=== PATIENT | male | born 1965 | race Asian ===

== ENCOUNTER 2016-07-15 15:12 | Emergency (ER) | payer MEDICAID ==
[~2016-07-15] VITALS: Ht 177.8 cm; Wt 77.1 kg
[2016-07-15 15:23] VITALS: BP 109/74; PULSE 73; RESP 18; TEMP 96.5; O2SAT 97
[2016-07-15] MEDS ORDERED: KETOROLAC TROMETHAMINE 60 MG/2 ML VIAL IM ONE (16:45)
[2016-07-15] MEDS ORDERED: DEXAMETHASONE SOD PHOSPHATE 10 MG/ML VIAL IM ONE (16:45)
[2016-07-15 17:35] VITALS: BP 119/65; PULSE 78; RESP 18; TEMP 98.3; O2SAT 97
== END 2016-07-15 17:35 | disposition home or self-care (01) ==
LOC: SED 15:12
DX: G89.29 Other chronic pain (principal); M54.5 Low back pain
CPT/HCPCS: 72100; 96372; 99284; J1100; J1885

== ENCOUNTER 2017-11-25 12:33 | Emergency (ER) | payer MEDICAID ==
[~2017-11-25] VITALS: Ht 177.8 cm; Wt 74.8 kg
[2017-11-25 12:35] VITALS: BP_SYST 122
[2017-11-25 13:58] LABS: BASOPHILS % (AUTO) 0.8 % (0.0-2.0); EOSINOPHILS # (AUTO) 0.1 K/uL (0.0-0.4); EOSINOPHILS % (AUTO) 2.5 % (0.0-4.0); HEMATOCRIT 42.8 % (36-54); HEMOGLOBIN 14.2 g/dL (14.0-18.0); LYMPHOCYTES # (AUTO) 1.5 K/uL (1.0-5.5); LYMPHOCYTES % (AUTO) 27.7 % (20.5-51.5); MEAN CORPUSCULAR HEMOGLOBIN 31 pg (27-31); MEAN CORPUSCULAR HGB CONC 33 % (32-36); MEAN CORPUSCULAR VOLUME 93 fL (79.0-98.0); MONOCYTES # (AUTO) 0.4 K/uL (0.0-1.0); MONOCYTES % (AUTO) 7.7 % (1.7-9.3); NEUTROPHILS # (AUTO) 3.4 K/uL (1.8-7.7); NEUTROPHILS % (AUTO) 61.3 % (40.0-70.0); PLATELET COUNT (AUTO) 269 K/uL (130-430); RED BLOOD CELL COUNT(AUTO) 4.63 MIL/uL (4.2-6.2); RED CELL DISTRIBUTION WIDTH 12.7 % (9.0-15.0); WHITE BLOOD COUNT (AUTO) 5.4 K/uL (4.8-10.8)
[2017-11-25 14:03] LABS: CALCIUM 8.6 mg/dL (8.4-11.0); CREATININE 1.13 mg/dL (0.55-1.30)
[2017-11-25 14:07] LABS: PROTHROMBIN TIME 9.7 SECS (9.5-12.5)
[2017-11-25 14:09] LABS: ALBUMIN 3.6 g/dL (3.4-4.8); TOTAL BILIRUBIN 0.4 mg/dL (0.0-1.0)
[2017-11-25 15:06] VITALS: BP_SYST 126
== END 2017-11-25 15:06 | disposition home or self-care (01) ==
LOC: SED 12:33
DX: N41.9 Inflammatory disease of prostate, unspecified (principal)
CPT/HCPCS: 36415; 80053; 82150-TC; 83690-TC; 85025; 85610-TC; 85730-TC; 99285

== ENCOUNTER 2018-05-31 10:24 | Emergency (ER) | payer BC, MEDICAID ==
[~2018-05-31] VITALS: Ht 180.3 cm; Wt 75.3 kg
[2018-05-31 10:30] VITALS: BP_SYST 121
[2018-05-31] MEDS ORDERED: NACL 0.9% 1,000 ML IV ONE (10:40)
[2018-05-31] MEDS ORDERED: KETOROLAC TROMETHAMINE 30 MG VIAL IVP ONE (10:45)
[2018-05-31 11:18] LABS: BASOPHILS % (AUTO) 0.8 % (0.0-2.0); EOSINOPHILS # (AUTO) 0.1 K/uL (0.0-0.4); EOSINOPHILS % (AUTO) 2.4 % (0.0-4.0); HEMATOCRIT 48.6 % (36-54); HEMOGLOBIN 16.1 g/dL (14.0-18.0); LYMPHOCYTES # (AUTO) 1.5 K/uL (1.0-5.5); LYMPHOCYTES % (AUTO) 29.6 % (20.5-51.5); MEAN CORPUSCULAR HEMOGLOBIN 32 pg (27-31); MEAN CORPUSCULAR HGB CONC 33 % (32-36); MEAN CORPUSCULAR VOLUME 95 fL (79.0-98.0); MONOCYTES # (AUTO) 0.3 K/uL (0.0-1.0); MONOCYTES % (AUTO) 5.8 % (1.7-9.3); NEUTROPHILS # (AUTO) 3.1 K/uL (1.8-7.7); NEUTROPHILS % (AUTO) 61.4 % (40.0-70.0); PLATELET COUNT (AUTO) 300 K/uL (130-430); RED BLOOD CELL COUNT(AUTO) 5.11 MIL/uL (4.2-6.2); RED CELL DISTRIBUTION WIDTH 12.9 % (9.0-15.0); WHITE BLOOD COUNT (AUTO) 5.1 K/uL (4.8-10.8)
[2018-05-31 11:19] LABS: CALCIUM 9.4 mg/dL (8.4-11.0); CREATININE 0.93 mg/dL (0.55-1.30); POTASSIUM 4.2 mmol/L (3.5-5.1)
[2018-05-31 11:21] LABS: INR 0.9 (0.80-1.20); PROTHROMBIN TIME 9.3 SECS (9.5-12.5)
[2018-05-31 11:23] LABS: ALBUMIN 4.4 g/dL (3.4-4.8); TOTAL BILIRUBIN 0.6 mg/dL (0.0-1.0)
[2018-05-31 11:29] LABS: BILIRUBIN,URINE NEGATIVE (NEGATIVE); CLARITY/URINE CLEAR (CLEAR); COLOR,URINE YELLOW (YELLOW); GLUCOSE,URINE NEGATIVE (NEGATIVE); KETONES,URINE NEGATIVE (NEGATIVE); LEUKOCYTE ESTERASE ,URINE NEGATIVE (NEGATIVE); NITRITE, URINE NEGATIVE (NEGATIVE); PROTEIN URINE NEGATIVE (NEGATIVE); UROBILINOGEN,URINE 0.2 (0.2-1.0)
[2018-05-31 11:35] LABS: BLOOD, URINE TRACE (NEGATIVE)
[2018-05-31 11:40] LABS: BACTERIA,URINE None Seen /HPF (None Seen); RBC,URINE 0-3 /HPF (0-3); WBC,URINE NONE SEEN /HPF (0-3)
[2018-05-31 11:41] LABS: MUCUS,URINE 1+ /LPF (None Seen)
[2018-05-31 13:56] VITALS: BP_SYST 140
== END 2018-05-31 13:56 | disposition home or self-care (01) ==
LOC: SED 10:24
DX: N20.0 Calculus of kidney (principal)
CPT/HCPCS: 36415; 71045; 74176; 80053; 81000; 82150; 82550; 83690; 84484; 85025; 85610; 85730; 93005; 96374; 99284; J1885; J7030

== ENCOUNTER 2019-03-02 11:54 | Emergency (ER) | payer BC, MEDICAID ==
[~2019-03-02] VITALS: Ht 177.8 cm; Wt 74.8 kg
[2019-03-02 11:58] VITALS: BP_SYST 122
[2019-03-02 14:34] VITALS: BP_SYST 107
== END 2019-03-02 14:34 | disposition home or self-care (01) ==
LOC: SED 11:54
DX: H61.22 Impacted cerumen, left ear (principal); R03.0 Elevated blood-pressure reading, without diagnosis of hypertension
CPT/HCPCS: 99282

== ENCOUNTER 2019-12-03 15:22 | Emergency (ER) | payer MEDICAID ==
[~2019-12-03] VITALS: Ht 177.8 cm; Wt 77.1 kg
[2019-12-03 15:35] VITALS: BP_SYST 121
--- NOTE | 2019-12-03 16:21 | NUR ---
Patient to ER bed CH1 to gown for evaluation. Side rails up.
--- NOTE | 2019-12-03 16:25 | NUR ---
Pt brought by self, A&Ox4, pt presents to ER with R elbow pain x 1 month, denies trauma, skin pink and warm, cap refill <3, VSS.
--- NOTE | 2019-12-03 16:46 | NUR ---
Dr Lewis evaluating patient at bedside
[2019-12-03 17:01] VITALS: BP_SYST 121
--- NOTE | 2019-12-03 17:01 | NUR ---
Patient given written and verbal discharge instructions and verbalizes understanding. ER MD discussed with patient the results and treatment provided. Patient in stable condition. ID arm band removed. No Rx given. Patient educated on pain management and to follow up with PMD. Pain Scale 3/10 . Opportunity for questions provided and answered. Medication side effect fact sheet provided.
== END 2019-12-03 17:01 | disposition home or self-care (01) ==
LOC: SED 15:22
DX: M77.8 Other enthesopathies, not elsewhere classified (principal)
CPT/HCPCS: 99283

== ENCOUNTER 2020-09-27 09:05 | Emergency (ER) | payer MEDICAID ==
[~2020-09-27] VITALS: Ht 177.8 cm; Wt 77.1 kg
[2020-09-27 09:27] VITALS: BP_SYST 116
[2020-09-27] MEDS ORDERED: TRAM50TA PO (10:48)
[2020-09-27 11:01] VITALS: BP_SYST 119
== END 2020-09-27 11:01 | disposition home or self-care (01) ==
LOC: SED 09:05
DX: S20.211A Contusion of right front wall of thorax, initial encounter (principal); Z79.899 Other long term (current) drug therapy; W18.39XA Other fall on same level, initial encounter; Y93.89 Activity, other specified; Y92.89 Other specified places as the place of occurrence of the external cause; Y99.8 Other external cause status
CPT/HCPCS: 71045; 71100; 99284

== ENCOUNTER 2023-07-10 13:19 | Emergency (ER) | payer MEDICAID, OTHER ==
[~2023-07-10] VITALS: Ht 177.8 cm; Wt 74.8 kg
[~2023-07-10 13:19] MED LIST: TRAM50TA PO
[2023-07-10 13:30] VITALS: BP_SYST 129; PULSE 64; RESP 19; TEMP 98; O2SAT 99
[2023-07-10] MEDS ORDERED: CEPH250C PO (14:20)
[2023-07-10] MEDS ORDERED: TOBR3.5O2 RIGHT EYE (14:20)
[2023-07-10 14:46] VITALS: BP_SYST 129; PULSE 64; RESP 19; TEMP 98; O2SAT 99
== END 2023-07-10 14:47 | disposition home or self-care (01) ==
LOC: SED 13:19
DX: H00.023 Hordeolum internum right eye, unspecified eyelid (principal); Z79.899 Other long term (current) drug therapy
CPT/HCPCS: 99283